=== PATIENT | male | born 1955 | race Caucasian/White ===

== ENCOUNTER 2018-02-02 11:15 | Outpatient (CLI) | payer MEDICARE, BC, MEDICAID, SELFPAY | END 2018-02-02 11:16 | PROVIDERS: PCP Internal Medicine; Visit Provider Orthopaedic Surgery | DX: S51.811A Laceration without foreign body of right forearm, initial encounter (principal); W26.0XXA Contact with knife, initial encounter | CPT/HCPCS: 99204 ==

== ENCOUNTER 2018-02-16 15:54 | Outpatient (REF) | payer MEDICARE, SELFPAY ==
[2018-02-16 19:03] LABS: COMMENT (LAB VIEW ONLY) < 13.00 mg/dL
== END 2018-02-16 15:55 ==
LOC: NCHCN 15:54
PROVIDERS: PCP Internal Medicine; Visit Provider Internal Medicine
DX: E11.65 Type 2 diabetes mellitus with hyperglycemia (principal)
CPT/HCPCS: 82043; 82570

== ENCOUNTER 2018-06-05 19:13 | Outpatient (REF) | payer MEDICARE, SELFPAY ==
[2018-06-05 19:52] LABS: ALT 38 U/L (12-78); AST 23 U/L (15-37); Albumin 4.5 g/dL (3.4-5.0); Alkaline Phosphatase 106 U/L (46-116); Anion Gap 9.9 mmol/L (3-11); BUN 21 mg/dL (7-18); Bilirubin, Total 0.4 mg/dL (0.2-1.0); CO2 28.1 mmol/L (21.0-32.0); Calcium 9.1 mg/dL (8.5-10.1); Chloride 101 mmol/L (98-107); Glucose 98 mg/dL (70-100); LDL CHOLESTEROL 87 mg/dL (<100); Potassium 4.3 mmol/L (3.5-5.1); Sodium 139 mmol/L (136-145); Total Protein 7.4 g/dL (6.4-8.2)
== END 2018-06-05 19:33 ==
LOC: NCHCN 19:13
PROVIDERS: PCP Internal Medicine; Visit Provider Internal Medicine
DX: K76.0 Fatty (change of) liver, not elsewhere classified (principal); E11.65 Type 2 diabetes mellitus with hyperglycemia; E78.5 Hyperlipidemia, unspecified; F20.9 Schizophrenia, unspecified
CPT/HCPCS: 80053; 83721

== ENCOUNTER 2018-08-02 18:41 | Outpatient (REF) | payer MEDICARE, SELFPAY ==
[2018-08-02 20:18] LABS: HCT 43.8 % (40.0-50.0); HGB 15.2 g/dL (13.5-17.5); Mean Corp. HGB Concentration 34.7 g/dL (32.0-36.0); Mean Corpuscular Volume 92.2 fL (80-95); Mean Platelet Volume 9.2 fL (8.0-11.0); Platelet Count 225 x1000/uL (130-400); RBC 4.75 m/cumm (4.50-6.00); RBC Distribution Width 12.9 % (11.8-14.1); White Blood Cell Count 7.75 k/cumm (4.4-10.8)
[2018-08-02 20:27] LABS: Iron 68 ug/dL (50-175); Total Iron Binding Capacity 310 ug/dL (250-450); Transferrin Sat 22 % (20-55)
[2018-08-02 20:41] LABS: ALT 59 U/L (12-78); AST 35 U/L (15-37); Albumin 4.1 g/dL (3.4-5.0); Alkaline Phosphatase 124 U/L (46-116); BUN 20 mg/dL (7-18); Bilirubin, Total 0.4 mg/dL (0.2-1.0); Chloride 100 mmol/L (98-107); Ferritin 237 ng/mL (8-388); Glucose 137 mg/dL (70-100); Potassium 4.2 mmol/L (3.5-5.1); Sodium 138 mmol/L (136-145); TSH 3.15 uIU/mL (0.358-3.74); Total Protein 7.3 g/dL (6.4-8.2)
== END 2018-08-02 19:01 ==
LOC: NCHCN 18:41
PROVIDERS: PCP Internal Medicine; Visit Provider Internal Medicine
DX: E11.65 Type 2 diabetes mellitus with hyperglycemia (principal); G47.33 Obstructive sleep apnea (adult) (pediatric); F20.9 Schizophrenia, unspecified; H81.10 Benign paroxysmal vertigo, unspecified ear
CPT/HCPCS: 80053; 85027; 82728; 83540; 83550; 84443

== ENCOUNTER 2019-05-16 16:16 | Outpatient (REF) | payer MEDICARE, BC, SELFPAY ==
[2019-05-16 21:53] LABS: COMMENT (LAB VIEW ONLY) 28.74 mg/dL; Microalb ug/mg Crea 32.7 ug/mg Cr
== END 2019-05-16 16:36 ==
LOC: NCHCN 16:16
PROVIDERS: PCP Internal Medicine; Visit Provider Internal Medicine
DX: E11.9 Type 2 diabetes mellitus without complications (principal)
CPT/HCPCS: 82043; 82570

== ENCOUNTER 2019-08-24 13:12 | Outpatient (REF) | payer MEDICARE, BC, SELFPAY ==
[2019-08-24 19:27] LABS: ALT 49 U/L (16-63); AST 29 U/L (15-37); Albumin 4.3 g/dL (3.4-5.0); Alkaline Phosphatase 129 U/L (46-116); Anion Gap 10.6 mmol/L (3-11); BUN 16 mg/dL (7-18); Bilirubin, Total 0.4 mg/dL (0.2-1.0); CO2 27.4 mmol/L (21.0-32.0); CREATININE 0.85 mg/dL (0.70-1.30); Calcium 9.2 mg/dL (8.5-10.1); Calculated LDL 65 mg/dL (<100); Chloride 103 mmol/L (98-107); Cholesterol 124 mg/dL (<200); Glucose 81 mg/dL (74-106); HDL Cholesterol 29 mg/dL (40-60); Potassium 4.6 mmol/L (3.5-5.1); Sodium 141 mmol/L (136-145); TSH 2.82 uIU/mL (0.36-3.74); Total Protein 7.2 g/dL (6.4-8.2); Triglyceride 150 mg/dL (<150)
== END 2019-08-24 13:32 ==
LOC: NCHCN 13:12
PROVIDERS: PCP Internal Medicine; Visit Provider Internal Medicine
DX: E78.5 Hyperlipidemia, unspecified (principal); I10 Essential (primary) hypertension
CPT/HCPCS: 80053; 80061; 84443

== ENCOUNTER 2020-06-09 14:17 | Outpatient (REF) | payer MEDICARE, SELFPAY ==
[2020-06-09 19:49] LABS: COMMENT (LAB VIEW ONLY) 37.35 mg/dL; Microalb ug/mg Crea 27.6 ug/mg Cr
== END 2020-06-09 14:37 ==
LOC: NCHCN 14:17
PROVIDERS: PCP Internal Medicine; Visit Provider Internal Medicine
DX: E11.9 Type 2 diabetes mellitus without complications (principal)
CPT/HCPCS: 82043; 82570

== ENCOUNTER 2020-09-08 18:49 | Outpatient (REF) | payer MEDICARE, SELFPAY ==
[2020-09-08 15:56] LABS: ALT 32 U/L (16-63); Anion Gap 5.2 mmol/L (3-11); BUN 13 mg/dL (7-18); CO2 28.8 mmol/L (21.0-32.0); CREATININE 0.8 mg/dL (0.70-1.30); Calcium 9.7 mg/dL (8.5-10.1); Chloride 104 mmol/L (98-107); Glucose 90 mg/dL (74-106); LDL CHOLESTEROL 73 mg/dL (<100); Potassium 4.4 mmol/L (3.5-5.1); Sodium 138 mmol/L (136-145); TSH 2.72 uIU/mL (0.36-3.74)
== END 2020-09-08 18:50 | disposition home or self-care (01) ==
LOC: NCHCN 18:49
PROVIDERS: PCP Internal Medicine; Visit Provider Internal Medicine
DX: K76.0 Fatty (change of) liver, not elsewhere classified (principal)
CPT/HCPCS: 80048; 83721; 84443; 84460

== ENCOUNTER 2021-06-18 15:57 | Outpatient (REF) | payer OTHER, SELFPAY ==
[2021-06-18 19:41] LABS: COMMENT (LAB VIEW ONLY) 24.12 mg/dL; Microalb ug/mg Crea 42.7 ug/mg Cr
== END 2021-06-18 15:58 | disposition home or self-care (01) ==
LOC: NCHCN 15:57
PROVIDERS: PCP Internal Medicine; Visit Provider Internal Medicine
DX: E11.9 Type 2 diabetes mellitus without complications (principal)
CPT/HCPCS: 82043; 82570

== ENCOUNTER 2021-09-10 02:35 | Outpatient (CLI) | payer OTHER, SELFPAY ==
[2021-09-10 13:24] LABS: Abs Immature Grans 0.01 10^3/uL (0.0-0.06); Absolute Basophil Count 0.02 10^3/uL (0.0-0.2); Absolute Eosinophil Count 0.02 10^3/uL (0.0-0.7); Absolute Lymphocyte Count 1.24 10^3/uL (1.2-3.4); Absolute Monocyte Count 0.57 10^3/uL (0.1-0.8); Absolute Neutrophil Count 3.39 10^3/uL (1.2-6.7); Basophils % 0.4; Eosinophils % 0.4; HGB 15.1 g/dL (13.5-17.5); Immature Grans % 0.2; Lymphocytes % 23.6; MCH 31.1 pg (27.0-33.0); MCHC 34.3 % (32.0-36.0); MCV 90.5 fL (80-95); MPV 8.8 fL (8.0-11.0); Monocytes % 10.9; Neutrophils % 64.5; Nucleated RBC 0 %; Platelet Count 196 10^3/uL (130-400); RBC 4.86 10^6/uL (4.36-5.78); RDW 12.1 % (11.8-14.1); RDW-SD 40.1 fL; WBC 5.25 10^3/uL (4.4-10.8)
[2021-09-10 14:35] LABS: Hemoglobin A1C 6.3 % (<5.7)
[2021-09-10 14:57] LABS: Vitamin D 25 Total 35.4 ng/mL (30-100)
[2021-09-10 15:24] LABS: ALT 43 U/L (16-63); AST 25 U/L (15-37); Albumin 4.2 g/dL (3.4-5.0); Alkaline Phosphatase 117 U/L (46-116); Anion Gap 12.1 mmol/L (3-11); BUN 19 mg/dL (7-18); Bilirubin, Total 0.4 mg/dL (0.2-1.0); CO2 25.9 mmol/L (21.0-32.0); CREATININE 0.9 mg/dL (0.70-1.30); Calcium 8.9 mg/dL (8.5-10.1); Calculated LDL 52 mg/dL (<100); Chloride 102 mmol/L (98-107); Cholesterol 107 mg/dL (<200); Folate 12.3 ng/mL (8.6-20.0); Glucose 128 mg/dL (74-106); HDL Cholesterol 27 mg/dL (40-60); Magnesium 2.1 mg/dL (1.8-2.4); Potassium 4.5 mmol/L (3.5-5.1); Sodium 140 mmol/L (136-145); TSH 2.14 uIU/mL (0.36-3.74); Total Protein 7.3 g/dL (6.4-8.2); Triglyceride 142 mg/dL (<150); Vitamin B12 453 pg/mL (193-986)
[2021-09-10 15:47] LABS: FREE T4 0.89 ng/dL (0.76-1.46)
[2021-09-10 15:56] LABS: C-Reactive Protein < 0.05 mg/dL (0.0-0.3)
[2021-09-10 21:49] LABS: T3,Free 4.7 pg/mL (2.8-5.3)
== END 2021-09-10 02:36 | disposition home or self-care (01) ==
LOC: LBO 02:35
PROVIDERS: PCP Internal Medicine; Visit Provider Psychiatry & Neurology Psychiatry
DX: Z79.899 Other long term (current) drug therapy (principal); F20.9 Schizophrenia, unspecified
CPT/HCPCS: 36415; 80053; 80061; 82306; 85027; 82607; 82728; 82746; 83036; 83735; 84439; 84443; 84481; 85025; 86140

== ENCOUNTER 2021-12-11 09:56 | Outpatient (CLI) | payer OTHER, SELFPAY ==
--- NOTE | 2021-12-11 09:45 | DI.RAD_ITS ---
Exam(s) XR KNEE LT 3V AP,LAT,CATHLEEN EXAM: XR KNEE LT 3V AP,LAT,CATHLEEN CLINICAL HISTORY: left knee pain. TECHNIQUE: 2D digital imaging was performed of the left knee. Three images were obtained. AP, late ral and PA tunnel views were obtained. COMPARISON: No exams were available for comparison FINDINGS: BONES: No acute fracture is present. No bony destructive lesion is seen. JOINTS: The knee is normally aligned. No joint effusion is seen. SOFT TISSUE: Normal. IMPRESSION: Normal radiographs of the left knee. DATA REPOSITORY: RADIATION DOSE DELIVERED:
== END 2021-12-11 09:57 | disposition home or self-care (01) ==
LOC: DIORS 09:56
PROVIDERS: PCP Internal Medicine; Referring Provider Internal Medicine; Visit Provider Physician Assistant
DX: M17.12 Unilateral primary osteoarthritis, left knee (principal)
CPT/HCPCS: 73562; 99202

== ENCOUNTER 2021-12-17 17:27 | Outpatient (REF) | payer OTHER, SELFPAY ==
[2021-12-17 20:09] LABS: COMMENT (LAB VIEW ONLY) 30.55 mg/dL; Microalb ug/mg Crea 49.4 ug/mg Cr
== END 2021-12-17 17:28 | disposition home or self-care (01) ==
LOC: NCHCN 17:27
PROVIDERS: PCP Internal Medicine; Visit Provider Internal Medicine
DX: E11.9 Type 2 diabetes mellitus without complications (principal)
CPT/HCPCS: 82043; 82570

== ENCOUNTER 2022-03-26 08:42 | Outpatient (CLI) | payer OTHER, SELFPAY ==
[2022-03-26 13:25] LABS: Anion Gap 8.9 mmol/L (3-11); BUN 16 mg/dL (7-18); CO2 26.1 mmol/L (21.0-32.0); CREATININE 0.9 mg/dL (0.70-1.30); Calcium 9.1 mg/dL (8.5-10.1); Chloride 102 mmol/L (98-107); Estimated GFR 94.78 (mL/min/1.73m2); Glucose 175 mg/dL (74-106); LDL CHOLESTEROL 54 mg/dL (<100); Potassium 4.5 mmol/L (3.5-5.1); Sodium 137 mmol/L (136-145)
[2022-03-29 14:05] LABS: TB Interpretation Negative (Negative)
[2022-04-01 12:38] LABS: HIV 1 RNA Qualitative Undetected copies/mL (Undetected)
== END 2022-03-26 08:43 | disposition home or self-care (01) ==
LOC: LOS 08:42
PROVIDERS: PCP Internal Medicine; Visit Provider Internal Medicine
DX: E11.9 Type 2 diabetes mellitus without complications (principal); I10 Essential (primary) hypertension; M25.562 Pain in left knee; Z11.4 Encounter for screening for human immunodeficiency virus [HIV]
CPT/HCPCS: 36415; 80048; 83721; 87536; 86480

== ENCOUNTER 2023-03-09 16:24 | Outpatient (REF) | payer OTHER, SELFPAY ==
[2023-03-09 20:33] LABS: Abs Immature Grans 0.01 10^3/uL (0.0-0.06); Absolute Basophil Count 0.02 10^3/uL (0.0-0.2); Absolute Eosinophil Count 0.11 10^3/uL (0.0-0.7); Absolute Lymphocyte Count 1.31 10^3/uL (1.2-3.4); Absolute Monocyte Count 0.53 10^3/uL (0.1-0.8); Absolute Neutrophil Count 5.27 10^3/uL (1.2-6.7); Basophils % 0.3; Eosinophils % 1.5; HCT 41.7 % (40.0-50.0); HGB 14.3 g/dL (13.5-17.5); Immature Grans % 0.1; Lymphocytes % 18.1; MCH 31.2 pg (27.0-33.0); MCHC 34.3 % (32.0-36.0); MCV 91 fL (80-95); MPV 9.1 fL (8.0-11.0); Monocytes % 7.3; Neutrophils % 72.7; Platelet Count 204 10^3/uL (130-400); RBC 4.59 10^6/uL (4.36-5.78); RDW 12.8 % (11.8-14.1); RDW-SD 42.6 fL; WBC 7.25 10^3/uL (4.4-10.8)
[2023-03-09 21:01] LABS: ALT 33 U/L (16-63); AST 25 U/L (15-37); Albumin 4.1 g/dL (3.4-5.0); Alkaline Phosphatase 95 U/L (46-116); Anion Gap 7.3 mmol/L (3-11); BUN 19 mg/dL (7-18); Bilirubin, Total 0.4 mg/dL (0.2-1.0); CO2 27.7 mmol/L (21.0-32.0); CREATININE 0.8 mg/dL (0.70-1.30); Calcium 8.9 mg/dL (8.5-10.1); Calculated LDL 43 mg/dL (<100); Chloride 100 mmol/L (98-107); Cholesterol 103 mg/dL (<200); Estimated GFR 97.61 (mL/min/1.73m2); Glucose 101 mg/dL (74-106); HDL Cholesterol 33 mg/dL (40-60); Potassium 4.1 mmol/L (3.5-5.1); Sodium 135 mmol/L (136-145); Total Protein 7.2 g/dL (6.4-8.2); Triglyceride 137 mg/dL (<150)
== END 2023-03-09 16:25 | disposition home or self-care (01) ==
LOC: NCHCN 16:24
PROVIDERS: PCP Internal Medicine; Visit Provider Internal Medicine
DX: E11.9 Type 2 diabetes mellitus without complications (principal); R06.09 Other forms of dyspnea; N32.81 Overactive bladder; I10 Essential (primary) hypertension
CPT/HCPCS: 80053; 80061; 85025

== ENCOUNTER → 2023-03-15 00:29 | Outpatient (CLI) | payer OTHER, SELFPAY ==
--- NOTE | 2023-03-15 | ETT_ITS ---
APPROVED REPORT Exam: Exercise Treadmill Patient Location: Out-Patient Room/Bed: Stress Nurse: Frieda Allen RN Ordering Provider:LUIS FERNANDO URIBE, Contact Number: [phone] BMI: 28.69 Baseline Rhythm: Sinus Rhythm Comment: Rare PVC Indications: VALENZUELA, Diabetic Medical History Medical History: HTN, HLD, DMT2, GARRICK Cardiac Medications: Atorvastatin, Trulicity, Olanzipine Allergies: NKA Cardiac Risk Factors: Diabetes, HLD Previous Cardiac Procedures: None Pretest Chest Pain Characteristics: None Exercise History: Physically active Physical Disabilities: None Lung Sounds: Clear to auscultation Heart Sounds: Regular Stress Test Details Test: Exercise stress testing was performed using a Dominick protocol. Rest Stress HR Resting HR Supine: 61 bpm Max Heart Rate (APMHR): 154 bpm Resting HR Standin bpm Target HR (85% APMHR): 131 bpm Max HR Achieved: 136 bpm % of APMHR: 88 Recovery HR: 74 bpm HR response to stress: Normal HR response to stress BP Resting BP Supine: 128/72 mmHg Resting BP Standin/70 mmHg Max BP: 180/68 mmHg Recovery BP: 124/78 mmHg BP response to stress: Normal blood pressure response to stress. ECG Resting ECG: Sinus Rhythm Ectopy: Rare PVC Stress ECG: Sinus Tachycardia ST Change: No significant ST segment changes noted Arrhythmia: None Recovery ECG: Sinus Rhythm Recovery ST Change: No significant ST segment changes noted Recovery Arrhythmia: Occasional PAC Clinical Reason for Termination: Fatigue Stress Symptoms: Leg Fatigue Exercise duration: 09 min08 sec Highest Stage Reached: Stage 4: 4.2 mph at 16% grade. Exercise capacity: 10.33 METs Angina Score: None Flynn Treadmill Score: 8.4 Rate Pressure Product: 31587 Stress ECG Conclusion 1. Resting electrocardiogram showed voltage for left ventricular hypertrophy 2. Patient exercised on the Dominick protocol and completed a workload of 10.33 METS, limited by leg fat igue 3. Normal heart rate and blood pressure response to exercise. Patient achieved 88% of predicted hear t rate for age 4. There was no electrocardiographic evidence of myocardial ischemia 5. There were no significant dysrhythmias Flynn Treadmill Score is 8.4 which is Low risk. Stress Test Summary STAGE Time (mins) Speed (mph) Grade (%) HR BP SpO2 SYMPTOMS METS Supine 61 128/72 94 Standing 77 112/70 1 3 1.7 10 97 138/68 94 4.5 2 6 2.5 12 113 160/60 93 Bilateral leg heaviness 7 3 9 3.4 14 135 Bilateral leg heaviness 10 1 min recovery 106 180/69 Bilateral leg heaviness 3 min recovery 76 154/80 96 6 min recovery 74 124/78 All symptoms resolved.
== END ==
PROVIDERS: PCP Internal Medicine; Visit Provider Internal Medicine
DX: R06.09 Other forms of dyspnea (principal)
CPT/HCPCS: 93016; 93018; 93017

== ENCOUNTER 2023-03-22 03:53 | Outpatient (CLI) | payer OTHER, SELFPAY ==
[2023-03-22] MEDS: Levalbuterol HFA 15 GM INH 4 PUFF IH (16:29)
[2023-03-22] MEDS: Inhaler, Assist Device 1 EACH MC (16:30)
--- NOTE | 2023-03-24 07:16 | W.PFT ---
Date of service: 03/22/23 Time of Service: 15:22 Pulmonary Function Test Result Indications: Dyspnea Interpretation Spirometry: There is no airflow limitation. There is no significant bronchodilator response. Impression Normal spirometry Clinical Correlation therefore is recommended.
== END 2023-03-22 03:54 | disposition home or self-care (01) ==
PROVIDERS: PCP Internal Medicine; Visit Provider Internal Medicine
DX: R06.00 Dyspnea, unspecified (principal)
CPT/HCPCS: 94060

== ENCOUNTER 2023-09-22 14:15 | Outpatient (REF) | payer OTHER, SELFPAY ==
[2023-09-22 19:44] LABS: COMMENT (LAB VIEW ONLY) 35.63 mg/dL
== END 2023-09-22 14:16 | disposition home or self-care (01) ==
LOC: NCHCN 14:15
PROVIDERS: PCP Internal Medicine; Visit Provider Internal Medicine
DX: E11.9 Type 2 diabetes mellitus without complications (principal)
CPT/HCPCS: 82043; 82570

== ENCOUNTER → 2024-02-16 10:55 | Outpatient (BNVA) | payer OTHER, SELFPAY | PROVIDERS: PCP Internal Medicine; Referring Provider Internal Medicine; Visit Provider Physical Therapy Assistant | DX: Z12.11 Encounter for screening for malignant neoplasm of colon (principal) ==

== ENCOUNTER 2024-03-01 02:36 | Outpatient (CLI) | payer OTHER, SELFPAY ==
--- NOTE | 2024-03-01 08:45 | DI.RAD_ITS ---
Exam(s) XR FOOT RT COMPLETE EXAM: XR FOOT RT COMPLETE CLINICAL HISTORY: Right foot pain, M79.671. TECHNIQUE: 2D digital imaging was performed. Three views. COMPARISON: CR XR FOOT LT COMPLETE from 03/01/2024 FINDINGS: BONES: No acute fracture is present. No bony destructive lesion is seen. Small heel spurs. JOINTS: No dislocation present. No significant degenerative changes. SOFT TISSUE: Normal. IMPRESSION: Small heel spurs. DATA REPOSITORY: RADIATION DOSE DELIVERED:
--- NOTE | 2024-03-01 13:35 | DI.RAD_ITS ---
Exam(s) XR FOOT LT COMPLETE EXAM: XR FOOT LT COMPLETE CLINICAL HISTORY: Left foot pain, M79.672. TECHNIQUE: 2D digital imaging was performed. Three views. COMPARISON: No exams were available for comparison FINDINGS: BONES: No acute fracture is present. No bony destructive lesion is seen. Small heel spurs. JOINTS: No dislocation present. No significant degenerative changes. SOFT TISSUE: Normal. IMPRESSION: Small heel spurs. DATA REPOSITORY: RADIATION DOSE DELIVERED:
== END 2024-03-01 02:56 ==
LOC: DI 02:37
PROVIDERS: PCP Internal Medicine; Visit Provider Podiatrist
DX: M79.671 Pain in right foot (principal); M79.672 Pain in left foot; M77.32 Calcaneal spur, left foot; M77.31 Calcaneal spur, right foot
CPT/HCPCS: 73630

== ENCOUNTER 2024-03-20 06:58 | Day surgery (SDC) | payer OTHER, SELFPAY ==
--- NOTE | 2024-03-19 09:28 | W.PM.HP.N ---
Date of service: 03/20/24 Time of Service: 08:13 Assessment and Plan Assessment and plan (1) Schizophrenia: Status: Chronic (2) Hypertension: Status: Chronic (3) Hyperlipidemia: Status: Acute (4) Diabetes mellitus type 2, insulin dependent: Status: Acute (5) Non-alcoholic fatty liver disease: Status: Acute (6) GARRICK (obstructive sleep apnea): Status: Chronic (7) Steatosis of liver: (8) Screening for malignant neoplasm of colon performed: Status: Acute Assessment and plan: Plan: Colonoscopy w/ general & natural airway. Informed consent is obtained for the procedural (explained in simple layman's terms that?the pt and/or family could understand) explaining risks vs benefits and alternatives to the procedure and consequences if we do not do the procedure and need/rational for the procedure. Risks include but are not limited to: bleeding, infection, perforation of colon.? This would necessitate emergency surgery to repair the damage w/ possible ostomy; and other associated complications w/ the required surgery. ? Also complications of anesthesia including aspiration, [place]/CVA/, inability to complete the procedure. I discussed with the?patient would they could expect during the procedure, post procedure and recovery time and risks.? The patient understands that they need to have a ride home after the procedure.? Generally Colonoscopy does not require antibiotics prophylaxis, This document was created with voice activated software and may contain errors. History of Present Illness Narrative: Patient is here today for colonoscopy for [].??? They completed a bowel prep with just a clear yellow residual effluent.? They not having any chest pain or shortness of breath, currently.? They are not experiencing any fever or chills.? They deny any productive cough or upper respiratory tract infection signs or symptoms.? They are not having abdominal pain, or nausea and vomiting.? They have not had any changes in medications, past medical history or past surgical history since previously being seen in the office. They have not had any accidents or have been in the ER since the clinic pre-operative evaluation. ??I reviewed the procedure with the patient today, including risks and benefits of the procedure, and what they could expect at home for recovery.? All questions are answered to the patient?s satisfaction today, and they are stable to proceed with the proposed procedure. The patient is here for Colonoscopy pre-op. He reports he had a colonoscopy a number of years ago, results unknown. He denies a family history of colon cancer. He has not had any bowel habit changes. -Discussed colonoscopy bowel prep as well as the procedure. Discussed possible complications of the procedure to include bleeding, pain, perforation, missed small lesion/polyp, sore throat, aspiration and adverse reaction to the medications. Questions were answered to patient?s satisfaction. No guarantees were implied or given. Anesthesia: general (without airway) Previous surgical intolerances: None Previous surgical complications: None Pulmonary risk factors: None PFT's: None Planned procedure: Yes Sleep apnea risks: No Can climb one flight of stairs (12-13 steps) in less than 30 seconds without stopping and without symptoms: Yes The surgery proposed for this patient is: Low risk Active cardiac conditions: None ECHO: None Stress Test: 2022- No eviudence of myocardia ischemia. Active risk factors: None ASA (acetylsalicylic acid):No Beta blockers: No Anti-coagulation: N/A Medications to be held: All vitamins and supplements x 5 days prior. 68 y/o male with history of HTN, HLD, Schizophrenia, Type 2 DM, GARRICK and non-alcoholic fatty liver disease presents for colonoscopy screening pre-op. He is accompanied by Nando from [employer] [facility]. He reports he had a colonoscopy a number of years ago, results unknown. He denies a family history of colon cancer. He denies any changes in bowel habits including bloody or black tarry stools, abdominal pain, diarrhea or constipation. He denies constitutional symptoms. He denies chest pain, palpitations, dyspnea or dyspnea with exertion. He denies prior history or family history of adverse reactions or complications with anesthesia. The patient denies any history of stroke, [place], seizures, bleeding or clotting disorders. He denies having any implanted metal in his body. Review of Systems All systems reviewed & are unremarkable except as noted in HPI and below PFSH All Active Problems Screening for malignant neoplasm of colon performed (Acute) Pain in left foot (Acute) Osteoarthritis of feet, bilateral (Acute) Left knee DJD (Acute) Mild medial Left knee pain (Acute) Hypertension (Chronic) Hyperlipidemia (Acute) Schizophrenia (Chronic) Diabetes mellitus type 2, insulin dependent (Acute) DDD (degenerative disc disease), lumbar (Acute) Non-alcoholic fatty liver disease (Acute) AGRRICK (obstructive sleep apnea) (Chronic) Medical History Steatosis of liver Dyspnea Pain, joint, knee, left Onychomycosis of toenail Overactive bladder Psoriasis of scalp Surgical History Tonsillectomy Repair of inguinal hernia Social History Smoking/Tobacco Use Status: Never Smoking risk assessment performed?: Yes Alcohol Intake: former Substance use type: does not use Housing: other Additional [facility] Med[facility] Allergies and Home Medications Allergies Allergy/AdvReac Type Severity Reaction Status Date / Time feathers Allergy Severe throat Verified 03/20/24 07:32 swelling sulfadiazine Allergy Severe rash Verified 03/20/24 07:32 aspirin Allergy Intermediate rash Verified 03/20/24 07:32 cat dander Allergy Intermediate asthma Verified 03/20/24 07:32 house dust Allergy Intermediate asthma Verified 03/20/24 07:32 mold Allergy Unknown Unknown Verified 03/20/24 07:32 pseudoephedrine (From AdvReac Severe palpitation Verified 03/20/24 07:32 Sudafed) s Home Medications ?Medication ?Instructions ?Recorded ?Confirmed ?Type cetirizine 10 mg capsule (Zyrtec) 10 mg PO DAILY PRN 03/03/18 03/20/24 History diphenhydramine HCl 25 mg capsule 25 mg PO PRN 03/03/18 03/20/24 History (Benadryl) fluticasone propionate 50 15.8 ml NS PRN 03/03/18 03/20/24 History mcg/actuation nasal spray,suspension ibuprofen 400 mg tablet 400 mg PO PRN 03/03/18 03/20/24 History multivitamin (Daily Multiple 1 ea PO DAILY 03/03/18 03/20/24 History tablet) olanzapine 10 mg tablet 10 mg PO DAILY 03/03/18 03/20/24 History olanzapine 20 mg tablet 20 mg PO DAILY 03/03/18 03/20/24 History omega-3 fatty acids-fish oil 340 3 ea PO HS 03/03/18 03/20/24 History mg-1,000 mg capsule (Fish Oil) atorvastatin 20 mg tablet 20 mg PO QHS 12/09/21 03/20/24 History dulaglutide 4.5 mg/0.5 mL 4.5 mg subcut QWEEK 12/09/21 03/19/24 History subcutaneous pen injector (Trulicity) melatonin 3 mg tablet 3 mg PO HS PRN 12/09/21 03/20/24 History propylene glycol 0.6 % eye drops 1 drp ophthalmic (eye) DAILY PRN 12/09/21 03/19/24 History (Systane Complete) sertraline 100 mg tablet 100 mg PO DAILY 12/09/21 03/20/24 History triamcinolone acetonide 0.1 % 1 applic topical BID PRN 12/09/21 03/19/24 History topical cream albuterol sulfate 90 mcg/actuation 2 puff inhalation Q6H PRN 11/20/22 03/20/24 Rx aerosol inhaler (Proventil HFA) shortness of breath or wheezing #8.5 grams magnesium hydroxide 400 mg/5 mL 5 ml PO DAILY PRN 02/08/24 03/20/24 History oral suspension (Milk of Magnesia) fqfqa-[id number] ml PO TID PRN 02/16/24 03/01/24 History Exam Narrative Exam Narrative: PHYSICAL EXAM GENERAL APPEARANCE: Alert, healthy appearance, oriented, x 3,? in no acute distress HYDRATION: Well hydrated HEAD, EYES, EARS, NECK, THROAT: Head is normocephalic, pupils equal, round, reactive to light and accommodation, ocular movement intact, sclera clear and no jaundice. ?Dentition intact. NECK: Trachea midline.? No JVD LUNGS: normal respiration/normal chest excursion. ?Clear to auscultation bilaterally. ?No wheeze. ?HEART: Regular rate and rhythm. no murmurs ABDOMEN: soft and non-tender to palpation.? Normal bowel sounds.? Time Spent Time spent with Patient: <40 minutes Time was spent: preparing to see the patient(eg.review tests), obtaining and/or reviewing separately otained hiistory, ordering medications,tests, procedures, referring, communicating with other health care aid, indepentently interpreting results, counseling the patient, care coordination and other
--- NOTE | 2024-03-19 09:35 | PDOC.DSDIS_ITS ---
Date of service: 03/20/24 Time of Service: :24 Discharge Plan Disposition Patient Disposition: Home Condition: Good Discharge Details Reason For Visit: CRC screening Attending Provider: Tisha Ramos Primary Care Provider: Rajendra Alejandro Home Meds and New Rx's Prescriptions: Continued melatonin 3 mg tablet 3 mg PO HS PRN atorvastatin 20 mg tablet 20 mg PO QHS Trulicity 4.5 mg/0.5 mL pen injector 4.5 mg subcut QWEEK triamcinolone acetonide 0.1 % cream 1 applic topical BID PRN Systane Complete 0.6 % drops 1 drp ophthalmic (eye) DAILY PRN sertraline 100 mg tablet 100 mg PO DAILY albuterol sulfate [Proventil HFA] 90 mcg/actuation HFA aerosol inhaler 2 puff inhalation Q6H PRN (Reason: shortness of breath or wheezing) Qty: 8.5 0RF [id number]-b-[id number] Liquid PO TID PRN multivitamin [Daily Multiple] 1 EACH tablet 1 ea PO DAILY olanzapine 10 MG tablet 10 mg PO DAILY diphenhydramine HCl [Benadryl] 25 MG capsule 25 mg PO PRN ibuprofen 400 MG tablet 400 mg PO PRN fluticasone propionate 15.8 ML spray,suspension 15.8 ml NS PRN olanzapine 20 MG tablet 20 mg PO DAILY Fish Oil 1 EACH capsule 3 ea PO HS Zyrtec 10 MG capsule 10 mg PO DAILY PRN magnesium hydroxide [Milk of Magnesia] 400 mg/5 mL suspension 5 ml PO DAILY PRN Discontinued bisacodyl 5 mg tablet,delayed release (DR/EC) 5 mg PO ONCE Qty: 4 0RF Rx Instructions: Per Colonoscopy bowel prep instructions polyethylene glycol 3350 17 gram/dose powder 238 g PO ONCE Qty: 238 0RF Rx Instructions: For Colonoscopy bowel prep, as directed by office ascorbic acid (vitamin C) [Vitamin C] 500 MG capsule, extended release 500 mg PO DAILY Discharge Instructions Additional Instructions: DSU Colonoscopy Post- Op Instructions Instructions for Everyone who is given Anesthesia: For your safety, please do the following for the next twenty-four (24) hours: *Do Not operate a motor vehicle (car, truck, motorcycle, etc.) *Do Not drink alcoholic beverages or use any recreational drugs for the first 24 hours or while taking pain medications. The medications in your body may have a reaction that can be dangerous. *Do Not make any important decisions or sign any important papers. Findings: Incomplete colonoscopy due to poor prep Follow up: CBC and Cologuard. Please go to my office immediately after being discharged from same-day surgery to sign the paperwork for for Cologuard and receive instructions. 1. No lifting over 20 pounds or strenuous activity for the first 24 hours after your procedure. After 24 hours there are no restrictions on your activity but you may feel fatigued for a few days. 2. After you arrive home you may have a light meal and return to your normal diet as you can tolerate it without feeling sick to your stomach. 3. You may have a bloated, gaseous feeling in your belly (abdomen) after a colonoscopy. Passing gas and belching will help. Walking or lying down on your left side with your knees flexed may relieve the discomfort. Call the office at [phone] (Office) or [phone] (Hospital) right away if you notice any of the following: a.Vomiting of blood or ?coffee ground stools?. b.Rectal bleeding 1Tbsp, blood clots or continuous bleeding. c.Severe belly (abdominal) pain. d.A hard distended belly (abdomen) and an inability to pass gas. 4. Please don?t expect to have a normal BM (bowel movement) for 2-3 days after your procedure. 5. If there are questions regarding the findings of your procedure, please contact your doctor 6. If you are unable to contact your doctor with a problem, contact the hospital at [phone]. 7. Continue all your regular medications unless directed otherwise. I understand the above instructions and have no questions. Signature of Patient or Adult Escort Name of Responsible Adult Escort Signature of Nurse Date/Time Activity:: see above Diet:: see above Discharge Orders Discharge Orders: Discharge Order (Routine); Ordered 03/20/24 Ordered By: Tisha Ramos DS: Diagnosis Discharge Diagnosis (1) Schizophrenia: Status: Chronic (2) Hypertension: Status: Chronic (3) Hyperlipidemia: Status: Acute (4) Diabetes mellitus type 2, insulin dependent: Status: Acute (5) Non-alcoholic fatty liver disease: Status: Acute (6) GARRICK (obstructive sleep apnea): Status: Chronic (7) Steatosis of liver: (8) Screening for malignant neoplasm of colon performed: Status: Acute Asessment and Plan: The patient is seen and examined after their colonoscopy.? The patient has been able to pass gas.? They are not having abdominal pain.? They have been able to tolerate liquids and a snack.? They do not have any nausea or vomiting.? They are not having any chest pain or shortness of breath.??? They are not having any rectal bleeding. Their vital signs have been stable-see nursing notes. We discussed findings during their colonoscopy, and any biopsies that were done/polyps that were removed. The patient will be sent a letter with any biopsy results, and when to repeat the colonoscopy.-see discharge instructions. Patient was given explicit instructions to follow-up regarding colonoscopy-refer to discharge instructions.? We reviewed resumption of medications. Patient verbalized understanding and discharged in stable and satisfactory condition- See nursing notes.
--- NOTE | 2024-03-19 10:06 | W.COLOREPORT ---
Date of service: 03/20/24 Time of Service: : Colonoscopy Report Date of procedure: 03/20/24 Pre-op diagnosis general: CRC screening Post-op diagnosis procedure note: other (Aborted colonoscopy due to poor prep) Surgeon: Tisha Ramos Anesthesia Type: General:No Airway Estimated blood loss (mL): 0 Complications: None Disposition: same day Prep: Miralax/Dulcolax Procedure Description: After informed consent was obtained, explaining risks of the procedure, including but not limits to: bleeding, infections, complications of anesthesia, perforations (which may require antibiotics and /or surgery and stay in the hospital), and abdominal pain/cramping. The patient was taken to the procedure room and placed in a left decubitous position. Monitors were applied and a time out was done. The patients name, date of , procedure, allergies to medications and metal in their body was reviewed. The patient was then sedated. Once sedated and comfortable a rectal exam was done. External exam was normal. Internal exam revealed a normal sphincter tone and no palpable masses. The prostate no palpable masses The previously lubricated Olympus scope was then introduced (see RN notes for scope number) and retrofelexed. No internal hemorrhoids were identified. The patient's descending colon was coated with thick brown stool. Making it almost impossible to visualize lesions less than 5 mm. Once we get to the right colon there is still is formed stool. At this point the procedure was abandoned. What could be seen of the mucosa is pink and healthy w/ a normal vascular pattern. The scope was removed, and the patient was woken up and taken back to Same day surgery in stable condition. The patient tolerated the procedure well and there were no immediate complications. Follow up: We will send the patient for a Cologuard. If this is positive then he is going to have to do 2-day prep. [place] Bowel Prep [place] Bowel Prep Right Colon: 0 Left Colon: 1 Transverse Colon: 1 Total Score: 2
[2024-03-20 07:27] VITALS: BP 116/71; PULSE 60; RESP 16; TEMP 36.3; O2SAT 96
[2024-03-20] MEDS: Lactated Ringers 1,000 ML 80 ML IV (08:00)
--- NOTE | 2024-03-20 08:16 | W.ANESPRE ---
General Info Date of Service Date Performed: 03/20/24 Height: 5 ft 10 in Weight: 98.4 kg Body Mass Index (BMI): 31.1 Surgical Procedure: Operation Date: 03/20/24 08:20 Proposed Procedure Side Surgeon ja Ramos, Meds Allergies and Home Medications Allergies Allergy/AdvReac Type Severity Reaction Status Date / Time feathers Allergy Severe throat Verified 03/20/24 07:32 swelling sulfadiazine Allergy Severe rash Verified 03/20/24 07:32 aspirin Allergy Intermediate rash Verified 03/20/24 07:32 cat dander Allergy Intermediate asthma Verified 03/20/24 07:32 house dust Allergy Intermediate asthma Verified 03/20/24 07:32 mold Allergy Unknown Unknown Verified 03/20/24 07:32 pseudoephedrine (From AdvReac Severe palpitation Verified 03/20/24 07:32 Sudafed) s Home Medication ?Medication ?Instructions ?Recorded cetirizine 10 mg capsule (Zyrtec) 10 mg PO DAILY PRN 03/03/18 diphenhydramine HCl 25 mg capsule 25 mg PO PRN 03/03/18 (Benadryl) fluticasone propionate 50 15.8 ml NS PRN 03/03/18 mcg/actuation nasal spray,suspension ibuprofen 400 mg tablet 400 mg PO PRN 03/03/18 multivitamin (Daily Multiple 1 ea PO DAILY 03/03/18 tablet) olanzapine 10 mg tablet 10 mg PO DAILY 03/03/18 olanzapine 20 mg tablet 20 mg PO DAILY 03/03/18 omega-3 fatty acids-fish oil 340 3 ea PO HS 03/03/18 mg-1,000 mg capsule (Fish Oil) atorvastatin 20 mg tablet 20 mg PO QHS 12/09/21 dulaglutide 4.5 mg/0.5 mL 4.5 mg subcut QWEEK 12/09/21 subcutaneous pen injector (Trulicity) melatonin 3 mg tablet 3 mg PO HS PRN 12/09/21 propylene glycol 0.6 % eye drops 1 drp ophthalmic (eye) DAILY PRN 12/09/21 (Systane Complete) sertraline 100 mg tablet 100 mg PO DAILY 12/09/21 triamcinolone acetonide 0.1 % 1 applic topical BID PRN 12/09/21 topical cream albuterol sulfate 90 mcg/actuation 2 puff inhalation Q6H PRN 05/20/23 aerosol inhaler (Proventil HFA) shortness of breath or wheezing #8.5 grams magnesium hydroxide 400 mg/5 mL 5 ml PO DAILY PRN 02/08/24 oral suspension (Milk of Magnesia) awgzw-o-vvrdswwrpexuy ml PO TID PRN 02/16/24 Current Visit Medications: Current Medications Generic Name Dose Route Start Last Admin Trade Name Freq PRN Reason Stop Dose Admin Hyoscyamine Sulfate 0.125 mg 03/20/24 09:35 Hyoscyamine 0.125 Mg Sl/Oral/Chew SL 04/19/24 09:34 DIRECTED PRN Ringer's Solution 1,000 mls @ 80 mls/hr 03/20/24 06:00 IV 04/18/24 23:59 [facility]ION [facility] IV Miscellaneous Supplies 1 each 03/20/24 06:00 Iv Access IV 04/18/24 23:59 DIRECTED BEATRICE Ondansetron HCl 4 mg 03/20/24 09:35 Ondansetron 4 Mg/2 Ml Vial IVP 04/19/24 09:34 Q4H PRN PRN Nausea / Vomiting Sodium Chloride 0 ml 03/20/24 06:00 Normal Saline Flush 10 Ml Syr IV 04/18/24 23:59 PRN PRN Sodium Chloride 0 ml 03/20/24 06:00 Normal Saline 10 Ml Vial IJ 04/18/24 23:59 DIRECTED PRN Sterile Water 0 ml 03/20/24 06:00 Water,Injection,Sterile 10 Ml Vial IJ 04/18/24 23:59 DIRECTED PRN PFSH Active Problems Active Problems: Problem Status Onset Code Screening for malignant neoplasm of colon performed Acute Z12.11 Pain in left foot Acute M79.672 Osteoarthritis of feet, bilateral Acute M19.071, M19.072 Left knee DJD Acute M17.12 Left knee pain Acute M25.562 Hypertension Chronic I10 Hyperlipidemia Acute E78.5 Schizophrenia Chronic F20.9 Diabetes mellitus type 2, insulin dependent Acute E11.9, Z79.4 DDD (degenerative disc disease), lumbar Acute M51.36 Non-alcoholic fatty liver disease Acute K76.0 GARRICK (obstructive sleep apnea) Chronic G47.33 Medical History Medical History Steatosis of liver Dyspnea Pain, joint, knee, left Onychomycosis of toenail Overactive bladder Psoriasis of scalp Surgical History Surgical History Tonsillectomy Repair of inguinal hernia Tobacco Smoking/Tobacco Use Status: Never Alcohol Alcohol Intake: former Substance Use Substance use type: does not use Vital Signs and Lab Results Vital Signs Most Recent Vital Signs in EMR: Most Recent Vital Signs Temp Pulse Resp BP Pulse Ox 36.3 C L 60 16 116/71 96 03/20/24 07:27 03/20/24 07:27 03/20/24 07:27 03/20/24 07:27 03/20/24 07:27 Point of Care Results Point of Care Results: Finger Stick Blood Glucose 113 03/20/24 07:37 Lab Results Blood Type / Crossmatch: No Data to Display Complete Blood Count: No Data to Display Complete Metabolic Panel: No Data to Display Liver Function Panel: No Data to Display Coagulation Panel: No Data to Display Cardiac Panel: No Data to Display Arterial Blood Gas: No Data to Display Venous Blood Gas: No Data to Display Pancreas Panel: No Data to Display Thyroid Panel: No Data to Display Infectious Disease: No Data to Display Blood Cultures: No Data to Display Toxicology Panel: No Data to Display Imaging and Studies Imaging and Studies Study information below may be from another EMR and interpreted by another provider. Please see original notes in EMR for more complete details. Stress Test Summary: STRESS TEST PATIENT NAME: Allen Betancourt UNIT #: [id number] ORDERING PROVIDER: Luis Fernando Alejandro PRIMARY CARE PROVIDER: LUIS FERNANDO ALEJANDRO MD DATE/TIME OF SERVICE: 03/15/23 ADMITTING PROVIDER: YOGI MCKINLEY MD : 1955 APPROVED REPORT Exam: Exercise Treadmill Patient Location: Out-Patient Room/Bed: Stress Nurse: Frieda Allen RN Ordering Provider:LUIS FERNANDO ALEJANDRO, Contact Number: [phone] BMI: 28.69 Baseline Rhythm: Sinus Rhythm Comment: Rare PVC Indications: VALENZUELA, Diabetic Medical History Medical History: HTN, HLD, DMT2, GARRICK Cardiac Medications: Atorvastatin, Trulicity, Olanzipine Allergies: NKA Cardiac Risk Factors: Diabetes, HLD Previous Cardiac Procedures: None Pretest Chest Pain Characteristics: None Exercise History: Physically active Physical Disabilities: None Lung Sounds: Clear to auscultation Heart Sounds: Regular Stress Test Details Test: Exercise stress testing was performed using a Dominick protocol. Rest Stress HR Resting HR Supine: 61 bpmMax Heart Rate (APMHR): 154 bpm Resting HR Standin bpmTarget HR (85% APMHR): 131 bpm Max HR Achieved: 136 bpm % of APMHR: 88 Recovery HR: 74 bpm HR response to stress: Normal HR response to stress BP Resting BP Supine: 128/72 mmHg Resting BP Standin/70 mmHg Max BP: 180/68 mmHg Recovery BP: 124/78 mmHg BP response to stress: Normal blood pressure response to stress. ECG Resting ECG: Sinus Rhythm Ectopy: Rare PVC Stress ECG: Sinus Tachycardia ST Change: No significant ST segment changes noted Arrhythmia: None Recovery ECG: Sinus Rhythm Recovery ST Change: No significant ST segment changes noted Recovery Arrhythmia: Occasional PAC Clinical Reason for Termination: Fatigue Stress Symptoms: Leg Fatigue Exercise duration: 09 min08 sec Highest Stage Reached: Stage 4: 4.2 mph at 16% grade. Exercise capacity: 10.33 METs Angina Score: None Flynn Treadmill Score: 8.4 Rate Pressure Product: 96283 Stress ECG Conclusion 1. Resting electrocardiogram showed voltage for left ventricular hypertrophy 2. Patient exercised on the Dominick protocol and completed a workload of 10.33 METS, limited by leg fatigue 3. Normal heart rate and blood pressure response to exercise. Patient achieved 88% of predicted heart rate for age 4. There was no electrocardiographic evidence of myocardial ischemia 5. There were no significant dysrhythmias Flynn Treadmill Score is 8.4 which is Low risk. Stress Test Summary STAGETime (mins)Speed (mph)Grade (%)[id number] [id number]/7294 Oqptqtrx74471/70 131.18350897/68103.5 [id number]/6093Bilateral leg heaviness7 393.630929Euxjqfqhq leg fgycsynac28 1 min [id number]/69Bilateral leg heaviness 3 min apiqncjl94002/8096 6 min vsmycppj93249/78All symptoms resolved. Dictated by: ARLEN BARNETT,YOGI KAT Dictated:: 03/15/23 1325 <Electronically signed by Yogi Mckinley M.D. in [place]> 03/15/23 1420 Transcribed Date: Transcribed Time: By: COLLIN This is privileged, confidential information, intended only for the provider named. Any use or distribution by any person other than this provider is strictly prohibited. If you receive this report in error, please notify us immediately at [phone] and return the original report to us at the address above. Thank you. Pulmonary Function Summary: Pulmonary Function Test PATIENT NAME: Allen Betancourt UNIT #: [id number] ADMITTING PROVIDER: Suzette German M.D. PRIMARY CARE PROVIDER: LUIS FERNANDO ALEJANDRO MD DATE OF ADMIT: 03/22/23 : 1955 Date of service: 03/22/23 Time of Service: 15:22 Pulmonary Function Test Result Indications: Dyspnea Interpretation Spirometry: There is no airflow limitation. There is no significant bronchodilator response. Impression Normal spirometry Clinical Correlation therefore is recommended. cc: Dictated by: SUZETTE GERMAN MD Dictated: 03/24/23 Time: 715 <Electronically signed by Suzette German M.D.> Date: 03/24/23716 Date: Date: Transcribed Date: 03/24/23 Transcribed Time: 715 By: JESSICA This is privileged, confidential information, intended only for the provider named. Any use or distribution by any person other than this provider is strictly prohibited. If you receive this report in error, please notify us immediately at [phone] and return the original report to us at the address above. Thank you. Anesthesia Assessment and Plan Anesthesia History Personal History: No History of Anesthesia Complications Family History: No Family History of Anesthesia Complications Exercise Tolerance Exercise Tolerance: Metabolic Equivalents>4 Pertinent Negatives Pertinent Negatives: No Symptoms of GERD and No History of CVA/TIA Cardiac & Pulmonary Exam Cardiac Exam: Normal S1/S2 Heart Sounds Pulmonary Exam: Clear Bilateral Breath Sounds Implantable Cardiac Device Does patient have a Pacemaker or an ICD?: No Airway Exam Known Difficult Airway: No Mallampati Class: 4 Mouth Opening: Narrow (< 3cm) Thyromental Distance: Less than 3 cm Neck Range of Motion: Full ROM Neck Circumference: Normal Teeth Condition: Normal Dentition, Generalized Poor Dentition and Dental Caries ASA Classification ASA Score: ASA 3 Emergency Case?: No NPO Status NPO Status: NPO Clears >2 hours, Solids >8 hours Anesthesia Plan Resuscitation Status: Full Code Anesthesia Technique: General Anesthesia Airway Planned: Natural Airway Monitors Used: Standard Monitors
[2024-03-20 08:30] VITALS: BMI 31.1
[2024-03-20 09:20] VITALS: BP 102/66; PULSE 59; RESP 17; TEMP 36.6; O2SAT 95
[2024-03-20 09:42] VITALS: BP 114/76; PULSE 57; RESP 16; TEMP 36.4; O2SAT 97
[2024-03-20 09:58] LABS: Abs Immature Grans 0.01 10^3/uL (0.0-0.06); Absolute Basophil Count 0.01 10^3/uL (0.0-0.2); Absolute Eosinophil Count 0.07 10^3/uL (0.0-0.7); Absolute Lymphocyte Count 0.99 10^3/uL (1.2-3.4); Absolute Monocyte Count 0.51 10^3/uL (0.1-0.8); Basophils % 0.2 %; Eosinophils % 1.3 %; HCT 44.8 % (40.0-50.0); HGB 15.3 g/dL (13.5-17.5); Immature Grans % 0.2 %; Lymphocytes % 17.7 %; MCH 31.8 pg (27.0-33.0); MCHC 34.2 % (32.0-36.0); MCV 93 fL (80-95); MPV 8.6 fL (8.0-11.0); Monocytes % 9.1 %; Neutrophils % 71.5 %; Platelet Count 173 10^3/uL (130-400); RBC 4.81 10^6/uL (4.36-5.78); RDW 12.4 % (11.8-14.1); RDW-SD 42.7 fL; WBC 5.59 10^3/uL (4.4-10.8)
--- NOTE | 2024-03-20 16:11 | W.ANESPOSTOP ---
Postoperative Evaluation Date, Time and Location Date Performed: 03/20/24 Time Performed: 09:40 Patient Location: Day Surgery Unit Vital Signs Most Recent Imported Vital Signs: Most Recent Vital Signs Temp Pulse Resp BP Pulse Ox 36.4 C L 57 L 16 114/76 97 03/20/24 09:42 03/20/24 09:42 03/20/24 09:42 03/20/24 09:42 03/20/24 09:42 Assessment Mental Status: Awake (Alert & Oriented to Patient Baseline) Airway and Respiratory Function: Patent airway with normal (patient baseline) respiratory exam Cardiovascular Function: Hemodynamically Stable Hydration Status: Adequately Hydrated Nausea & Vomiting: No Nausea or Vomiting Pain: Pt. Denies Any Pain Peripheral Nerve Block: Patient did not receive a nerve block Postoperative Comments:: Patient seen earlier today and was appropriate to his baseline
== END 2024-03-20 10:35 | disposition home or self-care (01) ==
PROVIDERS: PCP Internal Medicine; Visit Provider Surgery
PROC: 0DJD8ZZ Inspection of Lower Intestinal Tract, Via Natural or Artificial Opening Endoscopic (ICD-10-PCS; CPT 45378; principal; 2024-03-20 08:15)
DX: Z12.11 Encounter for screening for malignant neoplasm of colon (principal)
CPT/HCPCS: 45378; 36415; 85025; J2704

== ENCOUNTER 2024-03-26 16:13 | Outpatient (REF) | payer OTHER, SELFPAY ==
[2024-03-26 20:18] LABS: ALT 42 U/L (16-63); Creatine Kinase 165 U/L (39-308); Glucose 110 mg/dL (74-106); LDH 206 U/L (85-227)
[2024-03-26 20:36] LABS: Calculated LDL 53 mg/dL (<100); Cholesterol 114 mg/dL (<200); HDL Cholesterol 33 mg/dL (40-60); Triglyceride 140 mg/dL (<150)
== END 2024-03-26 16:14 | disposition home or self-care (01) ==
LOC: NCHCN 16:13
PROVIDERS: PCP Internal Medicine; Visit Provider Internal Medicine
DX: M60.9 Myositis, unspecified (principal)
CPT/HCPCS: 80061; 82550; 82947; 83615; 84460

== ENCOUNTER → 2024-03-27 15:13 | Outpatient (BNVA) | payer OTHER, SELFPAY | PROVIDERS: PCP Internal Medicine; Referring Provider Internal Medicine; Visit Provider Podiatrist | DX: M19.071 Primary osteoarthritis, right ankle and foot (principal); M19.072 Primary osteoarthritis, left ankle and foot; M79.672 Pain in left foot; M79.674 Pain in right toe(s) | CPT/HCPCS: 99213 ==

== ENCOUNTER 2024-09-20 16:12 | Outpatient (REF) | payer MEDICARE, SELFPAY ==
[2024-09-20 19:29] LABS: COMMENT (LAB VIEW ONLY) 37.93 mg/dL
== END 2024-09-20 16:13 | disposition home or self-care (01) ==
LOC: NCHCN 16:12
PROVIDERS: PCP Internal Medicine; Visit Provider Internal Medicine
DX: E11.9 Type 2 diabetes mellitus without complications (principal)
CPT/HCPCS: 82043; 82570

== ENCOUNTER 2024-12-20 20:22 | Outpatient (REF) | payer MEDICARE, SELFPAY ==
[2024-12-20 19:09] LABS: ALT 57 U/L (16-63); AST 32 U/L (15-37); Albumin 4.1 g/dL (3.4-5.0); Alkaline Phosphatase 127 U/L (46-116); Anion Gap 3.9 mmol/L (3-11); BUN 20 mg/dL (7-18); Bilirubin, Total 0.4 mg/dL (0.2-1.0); CO2 31.1 mmol/L (21.0-32.0); CREATININE 0.8 mg/dL (0.70-1.30); Calculated LDL 40 mg/dL (<100); Chloride 101 mmol/L (98-107); Cholesterol 130 mg/dL (<200); Glucose 174 mg/dL (74-106); HDL Cholesterol 29 mg/dL (>or=40); Potassium 4.1 mmol/L (3.5-5.1); Sodium 136 mmol/L (136-145); Total Protein 7.5 g/dL (6.4-8.2); Triglyceride 307 mg/dL (<150)
[2024-12-20 19:22] LABS: COMMENT (LAB VIEW ONLY) 51.75 mg/dL; Microalb ug/mg Crea 37.3 ug/mg Cr
== END 2024-12-20 20:23 | disposition home or self-care (01) ==
LOC: NCHCN 20:22
PROVIDERS: PCP Internal Medicine; Visit Provider Internal Medicine
DX: K76.0 Fatty (change of) liver, not elsewhere classified (principal); E78.49 Other hyperlipidemia; E11.8 Type 2 diabetes mellitus with unspecified complications
CPT/HCPCS: 80053; 80061; 82043; 82570; 84443

== ENCOUNTER → 2025-01-14 10:56 | Outpatient (BNVA) | payer MEDICARE, SELFPAY | PROVIDERS: PCP Internal Medicine; Referring Provider Internal Medicine; Visit Provider Nurse Practitioner Gerontology | DX: N40.1 Benign prostatic hyperplasia with lower urinary tract symptoms (principal); N13.8 Other obstructive and reflux uropathy; N32.81 Overactive bladder; E11.9 Type 2 diabetes mellitus without complications; J45.909 Unspecified asthma, uncomplicated; R39.9 Unspecified symptoms and signs involving the genitourinary system | CPT/HCPCS: 99215; 81002; 51798 ==

== ENCOUNTER 2025-01-14 12:53 | Outpatient (CLI) | payer MEDICARE, SELFPAY ==
[2025-01-15 09:24] LABS: PSA, Screening 1.6 ng/mL (<=4.5)
== END 2025-01-14 12:54 | disposition home or self-care (01) ==
LOC: LBO 12:53
PROVIDERS: PCP Internal Medicine; Visit Provider Nurse Practitioner Gerontology
DX: N40.1 Benign prostatic hyperplasia with lower urinary tract symptoms (principal); R39.9 Unspecified symptoms and signs involving the genitourinary system
CPT/HCPCS: 36415; 84153